=== PATIENT | male | born 1955 | race Caucasian/White ===

== ENCOUNTER 2024-09-21 15:14 | Inpatient (IN) | payer MEDICARE, OTHER ==
[~2024-09-21] VITALS: Ht 182.9 cm; Wt 71.9 kg
[2024-09-21 15:41] LABS: BASOPHILS ABSOLUTE AUTO 0.08 K/mm3 (0.00-0.23); BASOPHILS PERCENT AUTO 0 % (0-2); EOSINOPHILS ABSOLUTE AUTO 0.01 K/mm3 (0.00-0.68); EOSINOPHILS PERCENT AUTO 0 % (0-6); Hematocrit 54.3 % (37.0-53.0); IMMATURE GRAN PERCENT AUTO 2 % (0-1); LYMPHOCYTES ABSOLUTE AUTO 1.54 K/mm3 (0.84-5.20); LYMPHOCYTES PERCENT AUTO 6 % (21-46); MONOCYTES ABSOLUTE AUTO 2.13 K/mm3 (0.16-1.47); MONOCYTES PERCENT AUTO 8 % (4-13); Mean Corpuscular HGB 29.5 pg (26.0-34.0); Mean Corpuscular HGB Conc 33.1 g/dL (31.5-36.5); Mean Corpuscular Volume 89 fL (80-100); Mean Platelet Volume 10.8 fL (9.1-12.4); NEUTROPHILS ABSOLUTE AUTO 21.31 K/mm3 (1.96-9.15); NEUTROPHILS PERCENT AUTO 83 % (41-73); Platelet Count 392 K/mm3 (150-400); RDW Coefficient Variation 13.7 % (11.7-14.2); RDW Standard Deviation 44.2 fL (35.1-46.3); White Blood Cell Count 25.67 K/mm3 (4.00-11.30)
[2024-09-21 15:47] LABS: Source, Urine Straight Cath
[2024-09-21 15:53] LABS: Appearance, Urine Hazy (Clear); Blood, Urine Neg (Neg); Color, Urine Yellow (P-Yellow); Glucose Qualitative, Urine Neg (Neg); Ketones, Urine Neg (Neg); Leukocyte Esterase, Urine Neg (Neg); Nitrite, Urine Neg (Neg); Protein, Urine 1+ (Neg); Urobilinogen, Urine NORM (Normal)
[2024-09-21 15:55] LABS: International Normalized Ratio 1.97
[2024-09-21 16:00] LABS: CORONAVIRUS COVID-19 AG Negative (NEGATIVE); INFLUENZA A AG Negative (NEGATIVE); INFLUENZA B AG Negative (NEGATIVE)
[2024-09-21 16:06] LABS: Albumin, Blood 2.8 g/dL (3.4-5.0); Albumin/Globulin Ratio 0.6 (0.8-1.8); Bilirubin, Direct 0.3 mg/dL (0.0-0.3); Bilirubin, Indirect 0.4 mg/dL (0.1-0.7); Bilirubin, Total 0.7 mg/dL (0.1-1.0); Bun/Creatinine Ratio 64.4 (12.0-20.0); Calcium, Blood 9.1 mg/dL (8.5-10.1); Creatinine, Blood 2.16 mg/dL (0.60-1.20); Globulin, Blood 4.4 g/dL (2.2-4.0); Magnesium, Blood 3.7 mg/dL (1.6-2.4); Potassium, Blood 4.5 mmol/L (3.5-5.5); Total Protein, Blood 7.2 g/dL (6.4-8.2)
[2024-09-21 16:06] LABS: Bilirubin, Urine 1+ (Neg)
[2024-09-21 16:09] LABS: Amorphous Light (0-Heavy); Bacteria Mod /hpf; Mucus Heavy (0-Heavy); Red Blood Cells, Urine 0-2 /hpf (0-2); Spermatozoa Rare /hpf; Squamous Epithelial Cells Rare /hpf (Few); White Blood Cells, Urine 0-2 /hpf (0-5)
[2024-09-21] MEDS ORDERED: CefTRIAXone Sodium 1,000 MG in NS 50 ML IV ONE (16:15)
[2024-09-21] MEDS ORDERED: NS 1,000 ML IV SCH (16:15)
[2024-09-21] MEDS ORDERED: Enoxaparin 30 MG/0.3 ML SYR SC SCH (19:00)
[2024-09-21] MEDS ORDERED: FLU VACC TS2024-25(6MOS UP)/PF 45 MCG/0.5 ML SYRINGE IM ONE (19:00)
[2024-09-21] MEDS ORDERED: Ondansetron HCl 2 MG / ML 2ML Vial IV PRN (19:00)
[2024-09-21] MEDS ORDERED: Sodium Chloride 0.45% 1,000 ML IV SCH (19:05)
[2024-09-21 20:40] LABS: Bun/Creatinine Ratio 68.6 (12.0-20.0); Calcium, Blood 8.3 mg/dL (8.5-10.1); Creatinine, Blood 2.04 mg/dL (0.60-1.20); Potassium, Blood 4.8 mmol/L (3.5-5.5)
[2024-09-21] MEDS ORDERED: Ampicillin Sod/Sulbactam Sod 3 GM in NS 100 ML IV SCH (21:00)
[2024-09-21] MEDS ORDERED: Dextrose 5% 1,000 ML IV SCH (23:30)
[2024-09-21] MEDS ORDERED: D5W-1/2NS 1,000 ML IV SCH (23:30)
[2024-09-21 23:33] VITALS: BP 154/102
[2024-09-21] MEDS ORDERED: Dextrose 5% 1,000 ML IV ONE (23:45)
[2024-09-22 00:12] LABS: U Amphetamine Screen Not Detected; U Barbituate Screen Not Detected; U Benzodiazapine Screen Not Detected; U Buprenorphine Screen Not Detected; U Cannabinoids Screen Not Detected; U Cocaine Screen Not Detected; U Methadone Screen Not Detected; U Methamphetamine Screen Not Detected; U Opiates Screen Not Detected; U Oxycodone Screen Not Detected; U Phencyclidine Screen Not Detected
[2024-09-22 00:30] VITALS: BP 159/91
[2024-09-22] MEDS ORDERED: Dextrose 5% 1,000 ML IV SCH ×3 (00:55→13:00)
[2024-09-22 01:00] VITALS: BP 158/83
[2024-09-22 02:30] LABS: BASOPHILS ABSOLUTE AUTO 0.08 K/mm3 (0.00-0.23); BASOPHILS PERCENT AUTO 0 % (0-2); EOSINOPHILS ABSOLUTE AUTO 0.01 K/mm3 (0.00-0.68); EOSINOPHILS PERCENT AUTO 0 % (0-6); Hematocrit 50.5 % (37.0-53.0); IMMATURE GRAN ABSOLUTE AUTO 0.17 K/mm3 (0.00-0.10); IMMATURE GRAN PERCENT AUTO 1 % (0-1); LYMPHOCYTES ABSOLUTE AUTO 1.11 K/mm3 (0.84-5.20); LYMPHOCYTES PERCENT AUTO 6 % (21-46); MONOCYTES ABSOLUTE AUTO 1.76 K/mm3 (0.16-1.47); MONOCYTES PERCENT AUTO 9 % (4-13); Mean Corpuscular HGB 29.5 pg (26.0-34.0); Mean Corpuscular HGB Conc 31.7 g/dL (31.5-36.5); Mean Corpuscular Volume 93 fL (80-100); NEUTROPHILS ABSOLUTE AUTO 16.67 K/mm3 (1.96-9.15); NEUTROPHILS PERCENT AUTO 84 % (41-73); Platelet Count 297 K/mm3 (150-400); RDW Coefficient Variation 13.8 % (11.7-14.2); RDW Standard Deviation 47.4 fL (35.1-46.3); Red Blood Cell Count 5.42 M/mm3 (4.30-5.90)
[2024-09-22 02:47] LABS: Albumin, Blood 2.3 g/dL (3.4-5.0); Albumin/Globulin Ratio 0.6 (0.8-1.8); Bilirubin, Total 0.6 mg/dL (0.1-1.0); Bun/Creatinine Ratio 69.7 (12.0-20.0); Calcium, Blood 8.2 mg/dL (8.5-10.1); Creatinine, Blood 2.08 mg/dL (0.60-1.20); Potassium, Blood 4.6 mmol/L (3.5-5.5); Total Protein, Blood 6.3 g/dL (6.4-8.2)
[2024-09-22 03:00] VITALS: BP 176/81
--- NOTE | 2024-09-22 06:44 | NUR ---
Admit/ End of shift note. Pt admitted from the ED to PCU4. Pt was oriented to call light system and room. Pt is only A&Ox1, minimal verbal responses. Pt is a very poor historian, making admission assessment/questions difficult to complete. Med rec is currently incomplete pending family visiting during the day. Significant wounds to right hip/ lower abd area. Skin is red and seems to be sloughing away. Pt continues to scratch at area. Wounds were covered to try to stop him from scratching skin off. Pt has been repositioned regularly. Nicole was placed in the ED. Nicole draining strong smelling urine. Pt seems to be unable to use call light, frequent rounding. Bed alarm is active.
[2024-09-22] MEDS ORDERED: HydrALAZINE HCl 20 MG / ML 1ML Vial IV PRN (07:40)
[2024-09-22 07:58] VITALS: BP 164/79
[2024-09-22] MEDS ORDERED: Sodium Bicarbonate 650 MG Tab PO SCH (09:00)
[2024-09-22] MEDS ORDERED: CeFAZolin Sodium 2,000 MG in NS 100 ML IV SCH (09:04)
[2024-09-22 09:42] LABS: Bun/Creatinine Ratio 67.3 (12.0-20.0); Calcium, Blood 8.2 mg/dL (8.5-10.1); Creatinine, Blood 2.17 mg/dL (0.60-1.20); Potassium, Blood 4.1 mmol/L (3.5-5.5)
[2024-09-22] MEDS ORDERED: Phytonadione 5 MG Tab PO ONE (12:50)
[2024-09-22] MEDS ORDERED: Multivitamins 1 Tab PO SCH (13:00)
--- NOTE | 2024-09-22 15:07 | NUR ---
Met with pt's brother and sister at bedside. The patient did not acknowledge my presence. He was awake, looking around the room, but did not respond to verbal cues or speak. They state he was a heavy drinker and smoker for many years, and then suddenly quit 2 years ago. They also state they noticed it was around the same time that his mental state seemed to change, and he stopped leaving the house. Pt's sister states he hasn't been able to carry on a conversation for the past 2 years, and that she noticed his hands and feet were becoming "a dark purple," but pt declined a doctor visit. The patient is currently listed as "Full Code," and we discussed this today. The patient's sister became tearful, stating,"I think this has been coming on for a long time, and I think I know where it's heading." She and brother wish to speak with physician prior to making any further decisions.
[2024-09-22 15:29] VITALS: BP 157/66
[2024-09-22] MEDS ORDERED: Thiamine HCl 500 MG in NS 100 ML IV SCH (16:00)
[2024-09-22] MEDS ORDERED: DEXTROSE 5% IV SCH (16:00)
[2024-09-22] MEDS ORDERED: CEFAZOLIN SODIUM IV SCH (16:00)
[2024-09-22 16:39] LABS: Bun/Creatinine Ratio 64.3 (12.0-20.0); Calcium, Blood 8.1 mg/dL (8.5-10.1); Creatinine, Blood 2.24 mg/dL (0.60-1.20); Potassium, Blood 3.9 mmol/L (3.5-5.5)
--- NOTE | 2024-09-22 18:00 | NUR ---
SHIFT SUMMARY; ASSUMED CARE AT 0700. A/A/0X1. MUMBLES WHEN ASKED QUESTION, DOES NOT FOLLOW INSTRUCTIONS. LETHARGIC T/O MOST OF SHIFT. RESPONDS TO PAINFUL STIMULI. D5 GTT AT 100ML/HR, MEPILEX DRESSINGS TO LEFT LATERAL LEG. NON DRAINING, PHOTOS IN CHART, EVALUATED BY DR. PALMER. FLOATED HEELS T/O DAY, FEET PURPLE IN COLOR WITH CAP REFILL <3. BILATERAL HANDS NOTED TO BE REDDENED. DC IN PLACE DRAINING DARK YELLOW URINE. FAMILY MET WITH PALLATIVE CARE RN TODAY AND DR. PALMER. STATUS CHANGED TO MEDICAL, VSS, NO ACUTE CHANGES, WILL CONTINUE TO MONITOR AND SHIFT CHANGE.
[2024-09-22 19:32] VITALS: BP 164/72
[2024-09-22] MEDS ORDERED: Famotidine 20 MG Tab PO SCH (21:00)
[2024-09-22] MEDS ORDERED: AmLODIPine Besylate 5 MG Tab PO SCH (21:00)
[2024-09-22] MEDS ORDERED: Lactulose 200 GM/300 ML Enema 300ML BTL PR SCH (21:00)
[2024-09-23 00:25] VITALS: BP 140/57
[2024-09-23 01:45] LABS: International Normalized Ratio 3.01; Prothrombin Time Results 29.7 Sec (9.7-11.5)
[2024-09-23 01:48] LABS: Albumin, Blood 2.2 g/dL (3.4-5.0); Albumin/Globulin Ratio 0.6 (0.8-1.8); Bilirubin, Total 0.3 mg/dL (0.1-1.0); Bun/Creatinine Ratio 64.1 (12.0-20.0); Creatinine, Blood 2.17 mg/dL (0.60-1.20); Globulin, Blood 3.4 g/dL (2.2-4.0); Potassium, Blood 3.7 mmol/L (3.5-5.5); Total Protein, Blood 5.6 g/dL (6.4-8.2)
[2024-09-23 01:53] LABS: Hematocrit 36.5 % (37.0-53.0); Mean Corpuscular HGB 29.4 pg (26.0-34.0); Mean Corpuscular HGB Conc 32.9 g/dL (31.5-36.5); Mean Corpuscular Volume 90 fL (80-100); Mean Platelet Volume 11.4 fL (9.1-12.4); Platelet Count 269 K/mm3 (150-400); RDW Coefficient Variation 13.8 % (11.7-14.2); RDW Standard Deviation 45.1 fL (35.1-46.3); Red Blood Cell Count 4.08 M/mm3 (4.30-5.90); White Blood Cell Count 14.45 K/mm3 (4.00-11.30)
[2024-09-23 03:18] LABS: Stool Occult Bld Immuno 1 Positive (NEGATIVE)
--- NOTE | 2024-09-23 06:52 | NUR ---
NOC SHIFT SUMMARY ORIENTED TO SELF ONLY, MUMBLED TO CLEAR SPEECH AT TIMES. VSS. NOTED DARK STOOL X2 OVERNIGHT, PROVIDER NOTIFIED AND HEMMOCULT SENT AND + PER LAB. NOTIFIED PROVIDER AND LOVENOX STOPPED, ORDER FOR GI CONSULT RECEIVED. SPEECH THERAPY FOR MENTATION AND DIFFICULTY SWALLOWING. NOT FOLLOWING COMMANDS CONSISTENTLY. LACTULOSE ENEMA X1 SCHEDULED OVERNIGHT. Q2 TURN. WILL PASS ON TO DAY RN
[2024-09-23] MEDS ORDERED: Phytonadione 5 MG in NS 50 ML IV ONE (07:35)
[2024-09-23 07:36] VITALS: BP 156/58
[2024-09-23] MEDS ORDERED: Pantoprazole Sodium 40 MG Injection IV SCH (08:00)
[2024-09-23] MEDS ORDERED: Dextrose 5% 1,000 ML IV SCH ×2 (08:00→19:00)
[2024-09-23 12:26] LABS: Hematocrit 35.4 % (37.0-53.0); Hemoglobin 11.6 g/dL (13.5-17.5)
[2024-09-23 12:58] LABS: Calcium, Blood 8.3 mg/dL (8.5-10.1); Creatinine, Blood 2.05 mg/dL (0.60-1.20); Potassium, Blood 3.6 mmol/L (3.5-5.5)
--- NOTE | 2024-09-23 15:23 | NUR ---
Pt more responsive today, but still appears somewhat confused. Code status changed to DNR by family, as they discussed at length and feel sure this is what the patient would want. If his mentation does improve, will reassess at that time.
[2024-09-23 16:13] VITALS: BP 141/77
[2024-09-23] MEDS ORDERED: Lactulose 20 GM/30 ML UDC PO SCH (19:00)
[2024-09-23 20:38] VITALS: BP 158/63
[2024-09-24 04:00] VITALS: BP 129/48
[2024-09-24 05:09] LABS: Hematocrit 31.5 % (37.0-53.0); Hemoglobin 10.4 g/dL (13.5-17.5); Mean Corpuscular HGB 29.6 pg (26.0-34.0); Mean Corpuscular Volume 90 fL (80-100); Mean Platelet Volume 11.3 fL (9.1-12.4); Platelet Count 250 K/mm3 (150-400); RDW Standard Deviation 45.8 fL (35.1-46.3); Red Blood Cell Count 3.51 M/mm3 (4.30-5.90); White Blood Cell Count 12.92 K/mm3 (4.00-11.30)
[2024-09-24 05:36] LABS: Bun/Creatinine Ratio 49.2 (12.0-20.0); Calcium, Blood 7.9 mg/dL (8.5-10.1); Creatinine, Blood 1.79 mg/dL (0.60-1.20); Potassium, Blood 3.2 mmol/L (3.5-5.5)
--- NOTE | 2024-09-24 05:58 | NUR ---
NOC SHIFT SUMMARY TIM'S MENTATION IMPROVED OVERNIGHT, ABLE TO ANSWER IN COMPLETE SENTENCES, FOLLOWING COMMANDS AND ORIENTED TO SELF AND PLACE. UNSURE OF DATE OR WHAT BROUGHT HIM IN. STIFF LE, MEDICAL STATUS WITHOUT TELEMETRY. MULTIPLE DARK BMS OVERNIGHT, KNOWN + HEMMOCULT. REDNESS NOTED TO MEATUS, DC CATHETER STATLOCK REPLACED AND CATH CARE COMPLETED WITH EACH BM. Q2 TURN. SPOKE WITH DR. GROSSMAN REGARDING NA LEVEL @ 2200 AND ALSO DISCUSSED REMOVING DC AND USING MALE PUREWICK. DECLINED DUE TO CONCERNS FOR I/O MONITORING. MITTS REMOVED AROUND 0300 DUE TO FOLLOWING COMMANDS AND UNDERSTANDING OF EXPECTATIONS AND NOT PULLING AT LINES/DRAINS. WOUND CARE COMPLETED PER PROVIDER ORDER. TOLERATED WELL.
[2024-09-24 07:42] VITALS: BP 139/52
[2024-09-24] MEDS ORDERED: Dextrose 5% 1,000 ML IV SCH (08:00)
[2024-09-24] MEDS ORDERED: Potassium Chloride 20 MEQ TabCR PO ONE (08:00)
[2024-09-24 08:53] LABS: International Normalized Ratio 1.07; Prothrombin Time Results 11.4 Sec (9.7-11.5)
[2024-09-24] MEDS ORDERED: Lactulose 20 GM/30 ML UDC PO SCH (09:00)
[2024-09-24 09:07] LABS: Percent Saturation 16.1 % (20.0-50.0)
[2024-09-24 12:20] LABS: Hematocrit 30.1 % (37.0-53.0)
[2024-09-24 15:36] VITALS: BP 131/44
--- NOTE | 2024-09-24 17:58 | NUR ---
SHIFT SUMMARY; ASSUMED CARE AT 0700. A/A/OX2. STATES NAME AND ASKS FOR WATER AT TIMES, MINIMALLY FOLLOWS INSTRUCTIONS. LAYS IN POSITION AND WILL NOT STRAIGHTEN LEGS. MOVES ARMS, ASSISTS WITH ROLLING. BILATERAL FOAM BOOTIES, Q2 TURNS, DRESSINGS TO LEFT LATERAL LEG WOUNDS INTACT. SEVERAL BED CHANGES AND BED BATHS TODAY FROM INCONTINANT STOOL, BLACK AND LIQUID. DR. GHOSH UPDATED. D5 AT 150ML/HR, PUREE DIET, FED BY STAFF. RIGHT FOOT REMAINS PURPLE IN COLOR WITH EDEMA, PEDAL PULSE FAINT, EVALUATED BY DR. GHOSH. DC IN PLACE DRAINING CLEAR YELLOW URINE TO GRAVITY. NO ACUTE CHANGES, WILL CONTINUE TO MONITOR AND TREAT UNTIL CHANGE OF SHIFT.
--- NOTE | 2024-09-24 18:04 | NUR ---
PATIENT CONTINUES TO DECLINE. ATTEMPTED TO VISIT PATIENT TWICE TODAY. BOTH VISITS PATIENT WAS IN BED EYES SHUT RR E/U. PT IN POSITION IN BED LAYING ON HIS LEFT SIDE. PRIMARY RN STATES FAMILY WAS IN EARLY THIS MORNING AND LEFT TO WORK ON PROCESS OF GETTING PATIENT ESTABLISHED WITH MEDICAID SERVICES. PLAN WILL BE PLACEMENT AT THIS TIME.
[2024-09-24 20:05] VITALS: BP 94/57
[2024-09-24] MEDS ORDERED: Arginine/Glutamine/Calcium Hmb 1 Packet PO SCH (21:00)
[2024-09-25 04:10] LABS: Hematocrit 28.6 % (37.0-53.0); Hemoglobin 9.3 g/dL (13.5-17.5); Mean Corpuscular HGB 29.5 pg (26.0-34.0); Mean Corpuscular HGB Conc 32.5 g/dL (31.5-36.5); Mean Corpuscular Volume 91 fL (80-100); Mean Platelet Volume 11.3 fL (9.1-12.4); Platelet Count 208 K/mm3 (150-400); RDW Coefficient Variation 13.9 % (11.7-14.2); RDW Standard Deviation 45.9 fL (35.1-46.3); Red Blood Cell Count 3.15 M/mm3 (4.30-5.90); White Blood Cell Count 11.47 K/mm3 (4.00-11.30)
[2024-09-25 04:13] VITALS: BP 126/45
[2024-09-25 04:31] LABS: Calcium, Blood 7.7 mg/dL (8.5-10.1); Creatinine, Blood 1.5 mg/dL (0.60-1.20); Potassium, Blood 3.2 mmol/L (3.5-5.5)
[2024-09-25 07:17] VITALS: BP 127/44
[2024-09-25] MEDS ORDERED: Potassium Chloride 20 MEQ TabCR PO ONE ×3 (07:55→14:25)
[2024-09-25] MEDS ORDERED: Dextrose 5% 1,000 ML IV SCH (08:00)
--- NOTE | 2024-09-25 08:05 | NUR ---
Called in both consultation requests to Dr Gambino and Dr. Bautista; new orders to keep pt on clear liquids at this time.
--- NOTE | 2024-09-25 08:57 | NUR ---
Spoke with Dr. Richards regarding the plan of care.
[2024-09-25] MEDS ORDERED: Iron Dextran 50 MG / ML 2ML Vial IV ONE (10:00)
[2024-09-25] MEDS ORDERED: Iron Dextran 975 MG in NS 250 ML IV ONE (11:00)
[2024-09-25 11:37] VITALS: BP 126/45
[2024-09-25 12:30] LABS: Hematocrit 29.4 % (37.0-53.0); Hemoglobin 9.6 g/dL (13.5-17.5)
[2024-09-25 13:14] VITALS: BP 129/54
[2024-09-25 14:25] VITALS: BP 134/56
--- NOTE | 2024-09-25 15:10 | NUR ---
PT was incontinent of small amount of green brown stool. Pericare and linen changed as needed. Wound care done: old dressings removed, and replaced per written orders. Pt tolerated it well. Repositioned on the left side at this time. Heel protectors are on.
--- NOTE | 2024-09-25 16:30 | NUR ---
Telephone report given to Keely by phone. pt to transfer to [phone] shortly.
--- NOTE | 2024-09-25 19:34 | NUR ---
TRANSFER NOTE PATIENT TRANSFERRED FROM PCU4. ROOM AIR. D5 IV INFUSIONDC'D BY DR. GHOSH THIS EVENING. FAMILY WAS WITH PATIENT UPON TRANSFER. UPDATED ON PLAN OF CARE AND CASE MANAGEMENT UPDATED FAMILY. REPORT PASSED ON TO JU FLOWER. DRESSING CHANGE COMPLETED BY SHOE PACKER EARLIER TODAY.
[2024-09-25 19:47] VITALS: BP 131/48
[2024-09-26 05:25] LABS: Hematocrit 30.6 % (37.0-53.0); Hemoglobin 9.8 g/dL (13.5-17.5); Mean Corpuscular HGB 29.3 pg (26.0-34.0); Mean Corpuscular Volume 92 fL (80-100); Mean Platelet Volume 11.7 fL (9.1-12.4); Platelet Count 242 K/mm3 (150-400); RDW Coefficient Variation 13.7 % (11.7-14.2); RDW Standard Deviation 45.5 fL (35.1-46.3); Red Blood Cell Count 3.34 M/mm3 (4.30-5.90)
[2024-09-26 06:00] LABS: Bun/Creatinine Ratio 27.7 (12.0-20.0); Calcium, Blood 7.8 mg/dL (8.5-10.1); Creatinine, Blood 1.12 mg/dL (0.60-1.20); Potassium, Blood 3.5 mmol/L (3.5-5.5)
--- NOTE | 2024-09-26 06:04 | NUR ---
PT IS ORIENTED TO SELF, NOT COOPERATIVE WITH CARES. SM SHIFTS IN POSITION THROUGHOUT NIGHT. RA. INCONTINENT OF BM X1, DARK BROWN/BLACK. DC IN PLACE DRAING TO GRAVITY WITHOUT ISSUES. PT DID NOT TAKE ANY OF HIS MEDICATION D/T CHOKING RISK, AND DECLINED.
[2024-09-26 07:22] VITALS: BP 119/41
[2024-09-26] MEDS ORDERED: Lactulose 20 GM/30 ML UDC PO SCH (09:00)
--- NOTE | 2024-09-26 14:16 | NUR ---
PERFORMED WOUND CARE AND REPOSITIONED PT.
[2024-09-26 15:04] VITALS: BP 132/58
--- NOTE | 2024-09-26 17:24 | NUR ---
SUMMARY NO ACUTE CHANGES TO SHIFT. PT REPOSITIONED T/O DAY. WOUND CARE PERFORMED PER ORDERS. PT HAD TWO LARGE LOOSE INCONTINENT BMS THIS SHIFT. PT RESPONDS TO SOME VERBAL STIMULI, SEEMS ORIENTED TO SELF AND FAMILY. PT PO INTAKE POOR, DECLINED BREAKFAST AND LUNCH. WANTS THIN ICE WATER, EXPLAINED TO PT THAT HIS ORDERS ARE FOR THICKENED LIQUIDS. CALL LIGHT IN REACH AND BED ALARM ON.
[2024-09-26 19:57] VITALS: BP 138/63
[2024-09-27 05:12] VITALS: BP 138/50
[2024-09-27 05:30] LABS: Hematocrit 29.6 % (37.0-53.0); Hemoglobin 9.8 g/dL (13.5-17.5); Mean Corpuscular HGB 29.7 pg (26.0-34.0); Mean Corpuscular HGB Conc 33.1 g/dL (31.5-36.5); Mean Corpuscular Volume 90 fL (80-100); Mean Platelet Volume 11.5 fL (9.1-12.4); Platelet Count 326 K/mm3 (150-400); RDW Coefficient Variation 14.1 % (11.7-14.2); RDW Standard Deviation 45.4 fL (35.1-46.3); White Blood Cell Count 14.36 K/mm3 (4.00-11.30)
--- NOTE | 2024-09-27 05:53 | NUR ---
ORINETED TO SELF. RA. DC CATH DRAING TO GRAVITY WITHOUT ANY ISSUES. MULTIPLE SKIN WOUND TO ABDOMEN AND RLE WITH PEELING DRY SKIN. REPO THROUGHOUT NIGHT WHICH PT DOES NOT TOLERATE WELL.ORDER FOR PALLITIVE CONSULT IN CHART. PT DID NOT SLEEP MUCH LAST NIGHT.
[2024-09-27 06:02] LABS: Bun/Creatinine Ratio 39.2 (12.0-20.0); Creatinine, Blood 0.84 mg/dL (0.60-1.20); Potassium, Blood 3.3 mmol/L (3.5-5.5)
[2024-09-27 07:11] VITALS: BP 140/54
[2024-09-27] MEDS ORDERED: Potassium Chloride 20 MEQ TabCR PO ONE (07:45)
[2024-09-27] MEDS ORDERED: Pantoprazole Sodium 20 MG Tab PO SCH (08:00)
[2024-09-27] MEDS ORDERED: NS 250 ML IV PRN (08:55)
[2024-09-27] MEDS ORDERED: Cephalexin Monohydrate 500 MG Cap PO SCH (13:00)
[2024-09-27 15:56] VITALS: BP 144/59
--- NOTE | 2024-09-27 18:21 | NUR ---
SHIFT SUMMARY PT CONT LEVEL OF CARE WITH NO ACUTE CHANGES NOTED. PT NOTED TO ONLY EAT BREAKFAST THIS SHIFT BUT HAS REFUSED LUNCH AND SUPPER. PT KEEPS ASKING FOR ICE WATER AND HAS BEEN REEDUCATED THAT HE IS ON A NECTURE THICK LIQUID D/T RISK FOR ASPIRATION. PT NOTED TO COUGH STILL WITH THICKEN LIQUIDS. PT VANDA REMAINS PATENT. DSG TO R THIGH, ABD, R FOOT, R KNEE CHANGED THIS SHIFT. PT NOW HAS PANTS ON D/T SCRATCHING AND DIGGING AT AREAS TO HELP PREVENT HEALING.
[2024-09-27 19:32] VITALS: BP 156/61
[2024-09-28 03:42] VITALS: BP 160/59
[2024-09-28 04:37] LABS: Hemoglobin 10.5 g/dL (13.5-17.5)
[2024-09-28 04:52] LABS: Bun/Creatinine Ratio 41.5 (12.0-20.0); Calcium, Blood 8.3 mg/dL (8.5-10.1); Creatinine, Blood 0.8 mg/dL (0.60-1.20); Potassium, Blood 4.2 mmol/L (3.5-5.5)
--- NOTE | 2024-09-28 05:31 | NUR ---
SHIFT SUMMARY NOC PT A/O TO SELF. CONFUSED, BUT PLEASANT AND COOPERATIVE WITH CARE. VSS. NO ACUTE CHANGES TO REPORT. DRESSINGS ON WOUNDS ON RLE CHANGED AND ARE C/D/I. PT HAS DC IN PLACE DRAINING CLEAR YELLOW URINE TO GRAVITY. PT HAS HAD GOOD PO INTAKE. PT CURRENTLY RESTING WITH BED ALARM ON, BED IN LOWEST POSITION, AND CALL LIGHT WITHIN REACH.
[2024-09-28 07:31] VITALS: BP 146/60
[2024-09-28 08:34] LABS: International Normalized Ratio 1.07; Prothrombin Time Results 11.4 Sec (9.7-11.5)
[2024-09-28] MEDS ORDERED: Thiamine HCl 100 MG Tab PO SCH (13:00)
[2024-09-28 16:11] VITALS: BP 144/59
--- NOTE | 2024-09-28 18:11 | NUR ---
SHIFT SUMMARY PT CONT LEVEL OF CARE. PT A&O TO SELF ONLY MAX ASSIST X2 WITH REPOSITIONING. PT NOTED TO REFUSE MEALS AND ENSURE THIS SHIFT. PT NOTED TO DRINK ADAQUATE AMOUT OF WATER THIS SHIFT. DSG CHANGED THIS SHIFT AND PT PLACED IN PANTS TO PREVENT SCRATCHING AT AREAS. PT NOTED TO HAVE SEVERAL LIQUID STOOLS THIS SHIFT WITH ABNORMAL ODOR. RECEIVED ORDER TO CHECK FOR CDIFF COLLECTED AND SENT TO LAB AWAITING RESULTS. PT PLACED IN ISO TO RULE OUT CDIFF.
[2024-09-28 19:23] VITALS: BP 169/86
[2024-09-28 20:45] LABS: Adenovirus F 40/41 Not Detected (NOT DETECT); Astrovirus Not Detected (NOT DETECT); Campylobacter Sp Not Detected (NOT DETECT); Cryptosporidium Not Detected (NOT DETECT); Cyclospora Cayetanensis Not Detected (NOT DETECT); E. Coli O157 Not Detected (NOT DETECT); Entamoeba Histolytica Not Detected (NOT DETECT); Enteroaggregative E. coli-EAEC Not Detected (NOT DETECT); Enteropathogenic E. coli-EPEC Not Detected (NOT DETECT); Enterotoxigenic E. coli-ETEC Not Detected (NOT DETECT); Giardia Lamblia Not Detected (NOT DETECT); Norovirus GI/GII Not Detected (NOT DETECT); Plesiomonas Shigelloides Not Detected (NOT DETECT); Rotavirus A Not Detected (NOT DETECT); Salmonella Sp Not Detected (NOT DETECT); Sapovirus Not Detected (NOT DETECT); Shiga Toxin-prod E. coli-STEC Not Detected (NOT DETECT); Shigella/Enteroin E. coli-EIEC Not Detected (NOT DETECT); Vibrio Cholerae Not Detected (NOT DETECT); Vibrio Sp Not Detected (NOT DETECT); Yersinia Enterocolitica Not Detected (NOT DETECT)
--- NOTE | 2024-09-29 05:07 | NUR ---
SHIFT SUMMARY NOC PT A/O X SELF. PLEASANTLY CONFUSED. PT GI PANEL NEGATIVE. DURING SHIFT PT PULLED OFF DRESSINGS ON ABD AND R HIP WITH PANTS ON, BILATERAL MITTS PLACED SO PT FINE MOTOR SKILLS ARE IMPAIRED SO THAT IT WILL BE DIFFICULT TO REMOVE DRESSINGS. PT CONTINUES TO HAVE LIQUID STOOLS. PT PO INTAKE OF WATER IS GOOD, BUT REFUSES OTHER PO INTAKE BESIDES BITES OF APPLESAUCE WITH MEDS. PT CURRENTLY AWAITING LTC PLACEMENT. PT CURRENTLY RESTING WITH BED ALARM ON, BED IN LOWEST POSITION, AND CALL LIGHT WITHIN REACH.
[2024-09-29 05:54] VITALS: BP 147/45
[2024-09-29 07:28] VITALS: BP 133/47
[2024-09-29 15:30] VITALS: BP 129/48
--- NOTE | 2024-09-29 18:56 | NUR ---
SHIFT SUMMARY PT CONT LEVEL OF CARE AND CONT TO AWAIT PLACEMENT. PT CONT WITH DC, AND MITTENS. PT NOTED TO EAT DURING BREAKFAST AND LUNCH AND DRINK ADAQUATE AMOUT OF FLUID.
[2024-09-29 19:56] VITALS: BP 158/63
[2024-09-30 02:24] VITALS: BP 144/63
--- NOTE | 2024-09-30 05:38 | NUR ---
SHIFT SUMMARY NOC PT A/O TO SELF. PLEASANTLY CONFUSED, BUT STILL ATTEMPTING TO REMOVE DRESSING ON RLE. BILATERAL MITTS STILL IN PLACE WITH ORDER TO 10/01/24 @ 0010. PT TOOK BOTH ABX AND EMILY AT BEDTIME. DRESSING ON RLE C/D/I. PT HAS DC IN PLACE DRAINING CLEAR YELLOW URINE TO GRAVITY. PT CURRENTLY RESTING WITH BED ALARM ON, BED IN LOWEST POSITION, AND CALL LIGHT WITHIN REACH.
[2024-09-30] MEDS ORDERED: ZINC OXIDE/PETROLATUM, YELLOW 1 APPLIC/71 GM PASTE TOP SCH (15:05)
[2024-09-30 15:30] VITALS: BP 133/59
[2024-09-30] MEDS ORDERED: HyDROXyzine HCl 25 MG Tab PO SCH (16:00)
--- NOTE | 2024-09-30 17:41 | NUR ---
SHIFT SUMMARY PT CONT LEVEL OF CARE. MITTS CONT TO REMAIN IN PLACE TO BILAT HANDS PT IS CONSTANTLY TRYING TO RIP OFF WOUND DSG AND ITCH AT AREAS. PT STARTED ON HYDROXYZINE THIS SHIFT TO HELP WITH ITCHING. PT NOTED TO GET MITTS OFF THIS SHIFT AND RIP OF DSG. DSG WERE REAPPLIED AND MITTS PLACED BACK ON TO HANDS. PT NOTED TO HAVE GOOD PO INTAKE THIS SHIFT.
[2024-09-30 19:43] VITALS: BP 152/51
--- NOTE | 2024-10-01 04:12 | NUR ---
A&[address]ACE, VSS, DENIED PAIN, MITTS REMOVED THIS SHIFT (OOOO) HAS NOT BEEN REMOVING DRESSINGS, DIGGING WOUNDS, OR SPREADING STOOL ALL OVER HIMSELF (HAS SLEPT MOST OF SHIFT), REPOS Q2, SLEEPING AT THIS TIME, BED ALARM ACTIVE, WILL CONT TO MONITOR UNTIL REPORT GIVEN TO ONCOMING NURSE.
[2024-10-01 04:59] VITALS: BP 136/62
[2024-10-01 07:30] VITALS: BP 146/55
[2024-10-01 15:41] VITALS: BP 147/50
--- NOTE | 2024-10-01 18:30 | NUR ---
POOR PO INTAKE THIS SHIFT. PT IS ALERT AND ORIENTED X3. ABLE TO EXPRESS NEEDS, WOUND CARE PROVIDED TO RLE INCLUDING FOOT. PT FAMILY IN TO VISIT TODAY. Q2HR TURNS. PT IS CONTRACTED, DOES NOT TRY TO GET OUT OF BED.
[2024-10-01 21:05] VITALS: BP 143/54
[2024-10-02 04:27] VITALS: BP 149/60
[2024-10-02 07:32] VITALS: BP 132/83
[2024-10-02] MEDS ORDERED: Ondansetron 4 MG SoluTab MM PRN (15:45)
[2024-10-02 16:52] VITALS: BP 171/76
--- NOTE | 2024-10-02 16:59 | NUR ---
NO ACUTE CHANGES THIS SHIFT. AUTH PENDING FOR PLACEMENT, Q2HR TURN, PT STILL FAVORING RIGHT SIDE. CALM AND COOPERATIVE WITH CARE. PT ABLE TO FEED SELF AFTER ASSIST WITH SET UP. PT DOES WELL WITH STRAW FOR FLUIDS. DRESSINGS C/D/I ON RLE AND BILAT FEET.
[2024-10-02 19:27] VITALS: BP 160/65
[2024-10-03 02:04] VITALS: BP 125/57
--- NOTE | 2024-10-03 06:50 | NUR ---
SHIFT SUMMARY AT START OF SHIFT, PT LYING IN BED. PT BEGAN DIGGING IN HIS BRIEF AFTER HAVING LARGE BM. PT INEVITABLY SCRATCHED HIMSELF AND HAD FECES UNDER HIS NAILS, SOME OF WHICH HAD BEEN FROM PRIOR SHIFT. DURING BRIEF CHANGE, IT WAS NOTED BY THIS RN AND BUSINESS PROGRAMMER THAT PT HAD OLD FECES STILL QUITE STUCK TO HIM FROM DAY SHIFT. CALLED DOCTOR AND GOT ORDER FOR MITTS FOR PT SAFETY D/T MENTAL STATUS. PT CONTINUED TRYING TO PULL MITTS OFF AND BEGAN DEMANDING STAFF TO ROLL ME A SMOKE . CONTINUED MONITORING THROUGH SHIFT FOR PT SAFETY AND CONTINUED NEED FOR MITTS. WILL RELAY TO DAY SHIFT. PT HAS BEEN MOSTLY COOPERATIVE WITH CARE PROVIDED OTHERWISE.
[2024-10-03 07:38] VITALS: BP 148/58
[2024-10-03 16:58] VITALS: BP 154/59
--- NOTE | 2024-10-03 17:40 | NUR ---
NO ACUTE CHANGES THIS SHIFT. PT COOPERATIVE WITH MOST CARES. DC IN PLACE AND DRAINING TO GRAVITY. WOUND CARE PROVIED ORDERED. PT DENIES PAIN DURING DRESSING CHANGES. ALERT AND ORIENTED X2-3. Q 2HR TURNS PT SCRATCHING AT LEONEL AREA, REPORT PAINFUL BURNING. WHITE DISCHARGE NOTED FROM PENIS, DR. DE LA CRUZ AWARE. SEE EMAR. BEDREST.
[2024-10-03] MEDS ORDERED: Cephalexin Monohydrate 500 MG Cap PO SCH (21:00)
[2024-10-03 21:09] VITALS: BP 140/54
--- NOTE | 2024-10-04 03:58 | NUR ---
Oriented to self. Cooperative with cares. Pills crushed in applesauce, tolerates well. Nicole cath draining to gravity, without concerns. Overall great night, slept well with no acute needs.
[2024-10-04 05:19] VITALS: BP 142/55
[2024-10-04 07:59] VITALS: BP 113/43
[2024-10-04] MEDS ORDERED: HyDROXyzine HCl 25 MG Tab PO SCH (15:00)
[2024-10-04 15:30] VITALS: BP 135/62
--- NOTE | 2024-10-04 16:44 | NUR ---
NO ACUTE CHANGES THIS SHIFT. PT ALERT AND ORIENTED X2-3. CALM AND COOPERATIVE WITH CARES. PT IS Q2HR TURN. POOR PO INTAKE. DRINKS FLUIDS WELL WITH STRAW. DRESSINGS C/D/I. BED REST. DC CATHETER IN PLACE AND DRAINING TO GRAVITY. PLACEMENT PENDING ACCEPTANCE.
--- NOTE | 2024-10-04 19:24 | NUR ---
WOUND CARE PROVIDED THIS SHIFT 1800
[2024-10-04 20:40] VITALS: BP 144/62
[2024-10-04] MEDS ORDERED: HydrOXYzine Pamoate 50 MG Cap PO SCH (21:00)
[2024-10-05 05:06] VITALS: BP 145/67
--- NOTE | 2024-10-05 05:52 | NUR ---
SHIFT SUMM: PT IS A TO YO DNR WHO IS SUPPOSED TO BE D/C ON HOSPICE ONCE HE HAS PLACEMENT. PT HAS MULTIPLE WOUNDS ALL OVER BODY PRIMARILY ON BACK AND BILATERAL LOWER LEGS. PT HAS AN IRRITATED AND RED CHRONIC DC (CATH CARE GIVEN).PT HAS A HIST OF DEMENTIA.PT HAS SOME MILVIA IN LEGS AND HAS A HARD TIME STRETCHING LEGS AND FAVORS HIS RIGHT SIDE DURING REPOSITONING. PT IS INCONT TO STOOL BUT NO BM TONIGHT. THICKENED LIQUIDS ENCOURAGED AND PT NEEDS HELP WITH MEALS. PT TAKES MEDS CRUSHED IN PUDDING AND MUMBLES HIS WORDS. PT OFTEN PICS AT HIS SKIN AND WOUNDS. HEEL PROTECTORS AND MEPILEX PLACED TO PREVENT FURTHER SKIN BREAK DOWN. PT HAS CALL LIGHT IN REACH AND BED ALARM SET FOR SAFETY
[2024-10-05 07:28] VITALS: BP 144/53
[2024-10-05] MEDS ORDERED: HyDROXyzine HCl 25 MG Tab PO SCH (08:00)
[2024-10-05 15:42] VITALS: BP 146/57
--- NOTE | 2024-10-05 19:03 | NUR ---
SHIFT SUMMARY PATIENT WITH NO ACUTE EVENTS DURING SHIFT. HE IS COOPERATIVE WITH MOST CARE ALTHOUGH REFUSING TO TURN TO LEFT SIDE. WOUND CARE DONE AND TOLERATED WELL. BED IN LOWEST POSITION, CALL LIGHT IN REACH. BED ALARM ON.
[2024-10-05 21:06] VITALS: BP 128/52
--- NOTE | 2024-10-06 03:17 | NUR ---
SHIFT SUMMARY: PT HAS BEEN RESTING AND SLEEPING MOST OF THE SHIFT BUT CONTINUES TO TRY AND PICK AT SKIN AND IN GROIN AREA. BRIEFS CHECKED AND REPOSITIONED OFFERED Q2. PATIENT HAS BEEN COMPLIANT WITH CRUSHED MEDS IN VANILLA PUDDING AND DOES NOT EXPRESS BEING IN PAIN THIS SHIFT. PT HAS A CHRONIC DC WITH IRRITATION AROUND THE TIP OF THE PENIS THAT IS RED AND SLIGHT WHITE DISCHARGE THAT MD IS AWARE OF. PT HAS NOT WANTED TO DRINK MUCH THIS SHIFT AND HAS NOT EATEN. PT MOSTLY WANTS TO BE LEFT ALONE WHEN I COME IN THE ROOM. PT HAS CALL LIGHT AND BED ALARM SET FOR SAFETY AND MEPILEX IS STOOL COVERING ALL WOUNDS W/HEEL PROTECTORS.
[2024-10-06] MEDS ORDERED: Nicotine 21 MG PATCH TOP SCH (05:35)
[2024-10-06 05:39] VITALS: BP 144/62
[2024-10-06] MEDS ORDERED: Acetaminophen 325 MG TABLET PO PRN (05:40)
--- NOTE | 2024-10-06 06:17 | NUR ---
PT COMPLAINS OF PAIN AND WANTING TO GO OUT AND SMOKE A CIGARETTE. I CALLED THE HOSPITALIST AND HE ORDERED A NICOTINE PATCH AND TYLENOL 650 MG Q4 PRN SEE EMAR.
[2024-10-06 07:25] VITALS: BP 131/53
[2024-10-06] MEDS ORDERED: Lactulose 20 GM/30 ML UDC PO SCH (09:00)
[2024-10-06 16:09] VITALS: BP 147/65
--- NOTE | 2024-10-06 19:42 | NUR ---
SHIFT SUMMARY PATIENT TURNED QQ2H AND PASSIVE RANGE OF MOTION PROVDIED, PATIENT MEDICATED FOR PAIN PER EMAR. 1 LARGE BM TODAY. PATIENT AT 50-75% OF ALL MEALS TODAY AND DRANK ENSURE WITH EACH MEAL. HE IS ORIENTED TO SELF AND SOMETIMES LOCATION. HE USED THE CALL LIGHT TWICE TODAY AND YELLED OUT SEVERAL TIMES TO HAVE A BEDPAN PLACED UNDER HIM, ALSO STILL INCONTINENT OF STOOL. COMMUNICATING BETTER THAN PREVIOUSLY REPORTED. HE WAS VERY SLEEPY THIS AM BUT WOKE UP AROUND 10 AM ENOUGH TO EAT BREAKFAST AND TAKE HIS MEDICATIONS CRUSHED. BED IN LOW POSITION, CALL LIGHT IN REACH. BED ALARM ON.
--- NOTE | 2024-10-06 19:46 | NUR ---
PATIENT WAS ALSO ABLE TO FEED SELF FOR LUNCH AND DINNER WITH SOME ASSISTANCE THROUGHOUT MEAL, ABLE TO HOLD CUP WELL SMALL BOWL WITH SPOON. .
[2024-10-06 19:48] VITALS: BP 158/50
[2024-10-07 05:08] VITALS: BP 131/51
--- NOTE | 2024-10-07 06:03 | NUR ---
SHIFT SUMMARY: PT AOX1-2 CONTRACTED WITH MULTIPLE WOUNDS ON HIPS AND HEELS, MEPILEX IN PLACE. PT HAS DC CATHETER IN PLACE. PENIS APPEARS IRRITATED AND RED, NO DISCHARGE NOTED. URINE IS JHON, WITH SOME SEDIMENT IN THE MEASUREMENT CHAMBER. PT COMPLIANT IN CARE. DID HAVE A BLOW OUT AND WAS REACHING INTO HIS ATTENDS TO TOUCH BM. PT CLEANED AND NEW BEDDING IN PLACE. TOLERATING MEDS WELL AND NO ACUTE EVENTS OVERNIGHT. PT RESTING IN BED, BED IN LOWEST POSITION, CALL LIGHT IN REACH. CONTINUING CARE.
[2024-10-07 08:09] VITALS: BP 134/50
[2024-10-07 16:26] VITALS: BP 140/49
--- NOTE | 2024-10-07 17:53 | NUR ---
SUMMARY- AAOX1 THIS SHIFT. NO CHANGES. PT DENIES PAIN THIS SHIFT. PT WAS WITHDRAWN BUT OCASSIONALLY INTERACTIVE. BEDREST. ON RA.
[2024-10-07 20:53] VITALS: BP 147/71
[2024-10-08 02:58] VITALS: BP 132/49
--- NOTE | 2024-10-08 05:03 | NUR ---
SHIFT SUMMARY: PT AOX1 CONFUSED, FLAT/WITHDRAWN MOOD AND AFFECT. COOPERATIVE WITH CARE. PT HAD A LOOSE BM. DC STILL PRODUCING YELLOW URING, PENIS STILL RED AND IRRITATED. PROVIDER AWARE. PT DENIES ANY CHEST PAIN OR SOB. SLEPT WITHOUT ISSUE THROUGH OUT THE NIGHT. NO ACUTE EVENTS OVERNIGHT. PT SLEEPING, BED IN LOWEST POSITION, CALL LIGHT IN REACH. CONTINUING CARE.
[2024-10-08 07:26] VITALS: BP 144/64
[2024-10-08 16:02] VITALS: BP 157/64
--- NOTE | 2024-10-08 18:39 | NUR ---
SUMMARY- NO ACUTE CHANGES THIS SHIFT. PT MORE ALERT THIS SHIFT. AAOX2-3. PT ON RA. BEDREST.
[2024-10-08 21:22] VITALS: BP 153/53
[2024-10-09 02:23] VITALS: BP 127/48
[2024-10-09 07:40] VITALS: BP 127/52
[2024-10-09 15:43] VITALS: BP 140/62
--- NOTE | 2024-10-09 18:39 | NUR ---
SUMMARY- NO CHANGES WITH PT THIS SHIFT. NO COMPLAINTS OF PAIN. ALL PT'S WOUND DRESSINGS WERE CHANGED THIS SHIFT AFTER PT RECEIVED BED BATH. BEDREST. RA. CALM AND COOPERATIVE.
[2024-10-09 19:38] VITALS: BP 149/51
[2024-10-10 04:19] VITALS: BP 150/65
--- NOTE | 2024-10-10 07:10 | NUR ---
SHIFT SUMMARY PT DIGGING IN HIS FECES. CLEANED LEONEL AREA, BUT PT REFUSED TO ALLOW CATH CARE. PT SLEEPING PEACEFULLY. PT COMPLIANT WITH TAKING ORAL MEDICATIONS. RELAY TO DAY SHIFT.
[2024-10-10 07:49] VITALS: BP 142/61
[2024-10-10 15:18] VITALS: BP 150/59
--- NOTE | 2024-10-10 16:39 | NUR ---
NO ACUTE CHANGES. PT IS AOX2 AND HAS BEEN COOPERATIVE OF CARE. PT WILL TURN AND LAY ON BOTH SIDES. RESTING THROUGHOUT THE DAY. CALL LIGHT IS IN REACH AND BED ALARM IN PLACE. WILL CONTINUE TO MONITOR.
--- NOTE | 2024-10-10 18:09 | NUR ---
PT HAD ALL BANDAGES CHANGED AND WOUNDS CLEANED AND REBANDAGED PER DOCTORS ORDERS. PT ALSO HAD A VERY LEAKY DC AND THIS WAS REPLACED USING STERILE TECHNIQUE PT TOLERATED WELL.
[2024-10-10 22:22] VITALS: BP 132/55
--- NOTE | 2024-10-11 06:56 | NUR ---
SHIFT SUMMARY PT HAD LARGE BM AND ALLOWED THIS RN AND ADULT NEUROLOGIST TO CLEAN HIM AND PROVIDE CATHETER CARE. PT URETHRAL ORIFACE APPEARS INFECTED AND HAS FOUL ODOR EMINATING. ORAL TEMP 103.1 650MG TYLENOL ADMINISTERED. PT TEMP DOWN TO 99.9. PT NOW SLEEPING. PT WAKES FOR MEDICATION ADMINISTRATION, THEN GOES BACK TO SLEEP. PT DENIES PAIN AT THIS TIME.
[2024-10-11 07:27] VITALS: BP 152/76
[2024-10-11] MEDS ORDERED: Calcium Carbonate 500 MG Tab Chew PO PRN (15:05)
[2024-10-11 15:52] VITALS: BP 146/62
--- NOTE | 2024-10-11 19:18 | NUR ---
SHIFT SUMMARY PATIENT A/OX2-3 THIS SHIFT. PLEASANT AND COOPERATIVE WITH CARE. NEW ORDERS FOR PHYSICAL THERAPY RECEIVED. NEW ORDERS RECIEVED FOR BILATERAL FOOT WOUNDS. WOUND CARE PROVIDED PER ORDERS TO RIGHT LEG AND BILATERAL FEET. PATIENT COMPLAINING OF HEART BURN THIS AFTERNOON, NOTIFIED AND NEW ORDER FOR TUMS RECEIVED AND ADMINISTERED. DC CARE PROVIDED AND STAT LOCK REPLACED WAS PULLING ON DC CATHETER. PENILE HEAD INFLAMED WITH FOUL SMELLING DISCHARGE. NO OTHER CONCERNS AT THIS TIME. REPORT GIVEN TO SCRAP WHEELER RN.
[2024-10-11] MEDS ORDERED: HyDROXyzine HCl 25 MG Tab PO SCH (21:00)
[2024-10-11 22:08] VITALS: BP 124/52
--- NOTE | 2024-10-12 05:26 | NUR ---
SHIFT SUMMARY NOC PT A/O TO SELF/. PLEASANTLY CONFUSED AND COOPERATIVE WITH CARE. VSS. NO ACUTE EVENTS TO REPORT. PT HAD INCONTINENT XL LIQUID ROSE BM. DC IN PLACE DRAINING DARK YELLOW URINE TO GRAVITY. PT DRESSINGS ON BILATERAL FEET, AND R HIP C/D/I. PT CURRENTLY RESTING WITH BED ALARM ON, BED IN LOWEST POSITION, AND CALL LIGHT WITHIN REACH.
[2024-10-12 07:37] VITALS: BP 156/69
[2024-10-12 16:10] VITALS: BP 153/84
--- NOTE | 2024-10-12 18:16 | NUR ---
SHIFT SUMMARY PATIENT A/OX3 THIS SHIFT, ABLE TO MAKE NEEDS KNOWN. WITHDRAWN WITH FLAT AFFECT. WOUND CARE PROVIDED PER ORDERS TO RIGHT LEG AND BILATERAL FEET. PODIATRY CONSULT PLACED TODAY. DC CARE PROVIDED. UPDATED PATIENT'S BROTHER, ENRIQUETA, ON PATIENT STATUS. NO OTHER CONCERNS AT THIS TIME.
[2024-10-12 19:25] VITALS: BP 141/55
[2024-10-13 02:00] VITALS: BP 143/99
--- NOTE | 2024-10-13 06:09 | NUR ---
SHIFT SUMMARY NOC PT A/O X 2. PLEASANTLY CONFUSED, BUT COOPERATIVE WITH CARE. VSS. NO ACUTE CHANGES TO REPORT. PT HAS DC IN PLACE WITH DARK YELLOW URINE WITH GOOD OUTPUT. PT WOUND DRESSING ON R HIP AND BILATERAL FEET C/D/I. PT HAS BEEN PASSING LOTS OF GAS DURING SHIFT, BUT NO BM. PT CURRENTLY WAITING ON LTC PLACEMENT. PT CURRENTLY RESTING WITH BED ALARM ON, BED IN LOWEST POSITION, AND CALL LIGHT WITHIN REACH.
[2024-10-13 07:30] VITALS: BP 152/86
[2024-10-13 15:38] VITALS: BP 154/63
--- NOTE | 2024-10-13 17:39 | NUR ---
SHIFT SUMMARY PATIENT ALERT AND INTERACTIVE BUT CONFUSED. PATIENT HAD ONE LARGE SOFT BROWN FORMED STOOL IN BEDPAN. PATIENT REQUESTING PAIN MEDS OCCASIONALLY PATIENT MEDICATED PER MAR. SPOKE WITH BROTHER ISAIAS AND GAVE UPDATE PER PATIENT CONSENT. BROTHER STATES THAT PATIENT HAS PROGRESSIVELY DECLINED SINCE A FEW YEARS AGO. STATES PATIENT HAS NOT BEEN WALKING FOR A FEW WEEKS PRIOR TO COMING IN. PATIENT LIVES ON THE PROPERTY ALONE IN HIS OWN HOME. BROTHER STATES THAT HE HAS NOT BEEN EATING FOR QUITE SOME TIIME. PATIENT ONLY DRINKING ROOT BEER. BROTHER VERBALIZING CONCERN ABOUT DISCHARGE PLAN.
[2024-10-13 20:39] VITALS: BP 173/67
[2024-10-13 21:31] VITALS: BP 142/60
[2024-10-14 02:59] VITALS: BP 145/71
--- NOTE | 2024-10-14 06:02 | NUR ---
SHIFT SUMMARY NOC PT A/O TO PERSON, SELF, AND PLACE. CONFUSED BUT COOPERATIVE WITH CARE. VSS. NO ACUTE CHANGES TO REPORT. PT HAS DC IN PLACE DRAINING YELLOW URINE TO GRAVITY. PT BILATERAL FOOT WOUND DRESSINGS CHANGED YESTERDAY C/D/I. R HIP/THIGH WOUNDS DRESSING CHANGED PER ORDER @ 0545 THIS MORNING. PT HAS PODIATRY SCHEDULED TO COME CLIP TOE NAILS. PT AWAITING LTC PLACEMENT. PT CURRENTLY RESTING WIT BED ALARM ON, BED IN LOWEST POSITION, AND CALL LIGHT WITHIN REACH.
[2024-10-14 07:51] VITALS: BP 148/71
[2024-10-14 17:41] VITALS: BP 151/60
--- NOTE | 2024-10-14 19:04 | NUR ---
SUMMARY- NO CHANGES THIS SHIFT. PT AAOX2-3. PT DENIES PAIN. BEDREST. PT HAD MIN-MOD APPETITE. PT ON RA.
[2024-10-14 20:15] VITALS: BP 152/68
[2024-10-15 02:59] VITALS: BP 153/64
--- NOTE | 2024-10-15 06:08 | NUR ---
SHIFT SUMMARY: Pt admitted for SEAN and is a DNR. is alert and able to make needs known. ADLs have been mainly 1p but did not get out of bed. Denies pain or discomfort when asked. Folly in place and draining clear dark bari urine.
[2024-10-15 07:33] VITALS: BP 138/48
[2024-10-15] MEDS ORDERED: PANT20 PO (12:01)
--- NOTE | 2024-10-15 13:18 | NUR ---
DC- PT LEFT VIA AMBULANCE AT 1230. PT LEFT WITH ALL BELONGINGS. PT LEFT WITH DC CATHETER. REPORT CALLED TO POST ACUTE IN FISK AND GIVEN TO SHAWNA NURSE. ALL QUESTIONS ANSWERED. PT'S SISTER AND BROTHER UPDATED PER PT REQUEST.
== END 2024-10-15 12:47 | disposition hospice, home (50) | DRG 871 ==
LOC: EDBD 15:14 → ER 15:14 → PCU 18:59 → ERHOLD 18:59 → MEDS 18:59 → PCU 23:13 → MEDS 09-25 16:51
PROVIDERS: Emergency Medicine; Family Medicine; Internal Medicine; ADMIT Internal Medicine
DX: A41.9 Sepsis, unspecified organism (principal); G92.8 Other toxic encephalopathy; R65.21 Severe sepsis with septic shock; G93.41 Metabolic encephalopathy; N17.9 Acute kidney failure, unspecified; Z51.5 Encounter for palliative care; Z66 Do not resuscitate; L03.115 Cellulitis of right lower limb; E87.0 Hyperosmolality and hypernatremia; E87.20 Acidosis, unspecified; M62.82 Rhabdomyolysis; K92.1 Melena; I70.221 Atherosclerosis of native arteries of extremities with rest pain, right leg; F03.90 Unspecified dementia, unspecified severity, without behavioral disturbance, psychotic disturbance, mood disturbance, and anxiety; R79.1 Abnormal coagulation profile; L89.620 Pressure ulcer of left heel, unstageable; L89.610 Pressure ulcer of right heel, unstageable; K70.9 Alcoholic liver disease, unspecified; E86.0 Dehydration; E88.09 Other disorders of plasma-protein metabolism, not elsewhere classified; K76.82 Hepatic encephalopathy; F10.10 Alcohol abuse, uncomplicated; R82.998 Other abnormal findings in urine; E87.6 Hypokalemia; Z60.2 Problems related to living alone; Z87.891 Personal history of nicotine dependence
CPT/HCPCS: 36415; 51702; 70450; 71045; 73502; 73700; 76705; 76770; 80048; 80053; 81001; 82140; 82248; 82274; 82550; 82570; 82728; 83540; 83550; 83605; 83735; 83880; 84100; 84295; 84300; 84484; 85014; 85018; 85025; 85027; 85610; 85730; 87040; 87086; 87428-QW; 87507; 92610; 93005; 93010; 93922; 96365; 97110; 97162; 97530; 99285-25; A9270; J0295; J0690; J0696; J1650; J1750; J2470; J3411; J3430; J7030; J7050; J7070